=== PATIENT | female | born 1985 | race Caucasian/White ===

== ENCOUNTER 2017-04-04 20:05 | Emergency (ER) | payer OTHER ==
[~2017-04-04] VITALS: Ht 162.5 cm; Wt 59.0 kg
--- NOTE | ~2017-04-04 | EKG ---
[place], [place] ELECTROCARDIOGRAM REPORT NAME: ADRIAN AYALA UNIT #: [id number] ROOM: DOCTOR: JORY SIFUENTES MD BIRTHDATE: [birth year] DOS: 04/04/2017 TIME: 2045 hours. Normal sinus rhythm at 82 beats per minute. T-wave abnormalities in anterior chest leads. An abnormal ECG. No previous tracing is available for comparison. JORY SIFUENTES MD Micki Roberts NP CM:EKGRPT:ELECTROCARDIOGRAM REPORT [id number] JORY SIFUENTES MD
[~2017-04-04 20:05] MED LIST: ADVIL100 MG PO; CELEXA20 MG PO; CITALOPRAM20 MG PO; CLINDAMYCIN HC300 MG PO; IRON325 M1 PO; KROGER NIC21 MG/24 H T; LEVAQUIN750 M1 PO; MOTRIN800 MG PO; NKHM; OXYCODONE5 M1 PO; PERCOCET 325 MG1 TA2 PO; PNV-SELECT1 TAB PO; PROTONIX40 MG PO; SYMBICORT1 AE1 INH; TUMS500 MG PO; VENTOLIN H0.09 MG/AC INH; XANAX0.25 MG PO; Zofran4 MG PO
[2017-04-04 20:59] LABS: BASO % 0.3 % (0.0-1.0); EOS # 0.1 10*3/uL (0.0-0.4); HEMATOCRIT 38.5 % (37.0-47.0); HEMOGLOBIN 13.5 g/dl (12.0-16.0); LYMPH # 2.8 10*3/uL (1.3-4.4); LYMPH % 28.3 % (27.0-41.0); MEAN CELL VOLUME 95.1 fl (81.0-99.0); MEAN CORPUSCULAR HGB 33.3 pg (27.0-31.0); MEAN CORPUSCULAR HGB CONC 35.1 g/dl (33.0-37.0); MEAN PLATELET VOLUME 9.8 fl (9.6-12.3); MONO # 0.6 10*3/uL (0.1-1.0); MONO % 6.4 % (3.0-9.0); NEUT # 6.4 10*3/uL (2.3-7.9); NEUT % 63.8 % (47.0-73.0); PLATELET COUNT AUTOMATED 287 10*3/uL (130-400); RED BLOOD COUNT 4.05 10*6/uL (4.10-5.10); RED CELL DISTRI WIDTH 13.2 % (0-14.5)
[2017-04-04 21:16] LABS: ALBUMIN 3.7 gm/dl (3.1-4.5); ALKALINE PHOSPHATASE 78 U/L (45-117); BUN 9 mg/dl (7-24); CHLORIDE 107 mmol/L (98-107); CREATININE 0.86 mg/dL (0.55-1.02); POTASSIUM 3.5 mmol/L (3.5-5.1); SGOT/AST 15 IU/L (3-35); SGPT/ALT 19 U/L (12-78); SODIUM 140 mmol/L (136-145); TOTAL PROTEIN 7.1 gm/dL (6.4-8.2)
[2017-04-04 21:18] LABS: TROPONIN I < 0.015 ng/ml (<0.045)
[2017-04-04] MEDS ORDERED: PREDNISONE20 M1 PO (22:38)
[2017-04-04] MEDS ORDERED: ZITHROMAX250 MG PO (22:38)
== END 2017-04-04 23:40 | disposition home or self-care (01) ==
LOC: ED 20:05
PROVIDERS: Emergency Medicine Emergency Medical Services
DX: J20.9 Acute bronchitis, unspecified (principal); J44.9 Chronic obstructive pulmonary disease, unspecified; K21.9 Gastro-esophageal reflux disease without esophagitis; F17.200 Nicotine dependence, unspecified, uncomplicated; Z88.0 Allergy status to penicillin

== ENCOUNTER 2017-08-25 22:51 | Emergency (ER) | payer OTHER ==
[~2017-08-25] VITALS: Ht 157.4 cm; Wt 54.4 kg
[~2017-08-25 22:51] MED LIST changes: +PREDNISONE20 M1 PO; +ZITHROMAX250 MG PO
[2017-08-25 23:16] LABS: BASO # 0.1 10*3/uL (0.0-0.1); BASO % 0.4 % (0.0-1.0); EOS # 0.1 10*3/uL (0.0-0.4); HEMATOCRIT 41.3 % (37.0-47.0); HEMOGLOBIN 14.3 g/dl (12.0-16.0); LYMPH # 3.6 10*3/uL (1.3-4.4); LYMPH % 26.7 % (27.0-41.0); MEAN CELL VOLUME 94.5 fl (81.0-99.0); MEAN CORPUSCULAR HGB 32.7 pg (27.0-31.0); MEAN CORPUSCULAR HGB CONC 34.6 g/dl (33.0-37.0); MEAN PLATELET VOLUME 10.3 fl (9.6-12.3); MONO # 0.8 10*3/uL (0.1-1.0); MONO % 6.3 % (3.0-9.0); NEUT # 8.7 10*3/uL (2.3-7.9); NEUT % 65.3 % (47.0-73.0); PLATELET COUNT AUTOMATED 293 10*3/uL (130-400); RED BLOOD COUNT 4.37 10*6/uL (4.10-5.10); RED CELL DISTRI WIDTH 13.5 % (0-14.5); WHITE BLOOD COUNT 13.3 10*3/uL (4.8-10.8)
[2017-08-25 23:29] LABS: ACT PARTIAL THROMBO TIME 23.8 SECONDS (20.8-31.5)
[2017-08-25 23:43] LABS: ALBUMIN 4.1 gm/dl (3.1-4.5); ALKALINE PHOSPHATASE 81 U/L (45-117); BUN 18 mg/dl (7-24); CHLORIDE 103 mmol/L (98-107); CREATININE 0.79 mg/dL (0.55-1.02); POTASSIUM 4.1 mmol/L (3.5-5.1); SGOT/AST 30 IU/L (3-35); SGPT/ALT 18 U/L (12-78); SODIUM 138 mmol/L (136-145); TOTAL PROTEIN 7.9 gm/dL (6.4-8.2)
[2017-08-25 23:44] LABS: TROPONIN I < 0.015 ng/ml (<0.045)
== END 2017-08-26 02:48 | disposition home or self-care (01) ==
LOC: ED 22:51
PROVIDERS: Emergency Medicine
DX: R07.89 Other chest pain (principal); J06.9 Acute upper respiratory infection, unspecified; K21.9 Gastro-esophageal reflux disease without esophagitis; Z90.89 Acquired absence of other organs; Z79.899 Other long term (current) drug therapy; Z88.0 Allergy status to penicillin

== ENCOUNTER 2019-01-21 18:18 | Emergency (ER) | payer OTHER ==
[~2019-01-21] VITALS: Ht 162.5 cm; Wt 55.3 kg
[2019-01-21] MEDS ORDERED: CEPHALEXIN500 M1 PO (19:09)
== END 2019-01-21 18:56 | disposition home or self-care (01) ==
LOC: ED 18:18
DX: L72.8 Other follicular cysts of the skin and subcutaneous tissue (principal); Z90.89 Acquired absence of other organs; Z88.0 Allergy status to penicillin

== ENCOUNTER → 2019-01-27 | Outpatient (CLI) | payer OTHER ==
[~2019-01-27] MED LIST changes: +CEPHALEXIN500 M1 PO
== END | disposition home or self-care (01) ==
LOC: RESCLI 00:47
DX: Z12.4 Encounter for screening for malignant neoplasm of cervix (principal); F17.219 Nicotine dependence, cigarettes, with unspecified nicotine-induced disorders; J44.9 Chronic obstructive pulmonary disease, unspecified; F17.200 Nicotine dependence, unspecified, uncomplicated; Q18.1 Preauricular sinus and cyst; Z71.6 Tobacco abuse counseling; Z79.899 Other long term (current) drug therapy

== ENCOUNTER 2021-06-23 22:52 | Emergency (ER) | payer SELFPAY ==
[~2021-06-23] VITALS: Ht 162.5 cm; Wt 65.8 kg
[2021-06-23] MEDS ORDERED: PREDNISONE20 M1 PO (23:06)
== END 2021-06-23 23:26 | disposition home or self-care (01) ==
LOC: ED 22:52
DX: T78.49XA Other allergy, initial encounter (principal); X58.XXXA Exposure to other specified factors, initial encounter

== ENCOUNTER 2022-07-10 17:12 | Emergency (ER) | payer SELFPAY ==
[~2022-07-10] VITALS: Wt 70.8 kg
[2022-07-10] MEDS ORDERED: MEDROL DOSEPAK4 MG PO (21:19)
[2022-07-10] MEDS ORDERED: CYCLOBENZAPRINE10 MG PO (21:19)
== END 2022-07-10 21:47 | disposition home or self-care (01) ==
LOC: ED 17:12
DX: M54.32 Sciatica, left side (principal); M54.31 Sciatica, right side; Z88.0 Allergy status to penicillin

== ENCOUNTER → 2023-03-23 | Outpatient (CLI) | payer BC ==
[~2023-03-23] MED LIST changes: +CYCLOBENZAPRINE10 MG PO; +MEDROL DOSEPAK4 MG PO
== END | disposition home or self-care (01) ==
LOC: RAD 11:12
PROVIDERS: ATTEND Nurse Practitioner Family
DX: R06.02 Shortness of breath (principal)